=== PATIENT | female | born 1950 | race Two or more races ===

== ENCOUNTER 2016-12-20 09:48 | Day surgery (SDC) | payer OTHER ==
[~2016-12-20] VITALS: Ht 162.6 cm; Wt 57.1 kg
[2016-12-20 10:25] VITALS: Ht 162.6 cm; Wt 57.1 kg
[2016-12-20] MEDS ORDERED: ASPI81TA3 PO (10:36)
[2016-12-20] MEDS ORDERED: ATENOLOL (10:36)
[2016-12-20] MEDS ORDERED: LOSARTAN (10:36)
[2016-12-20] MEDS ORDERED: OMEPRAZOLE (10:36)
[2016-12-20] MEDS ORDERED: SIMVASTATIN (10:36)
[2016-12-20] MEDS ORDERED: CLONIDINE (10:36)
[2016-12-20 10:53] VITALS: BP 179/83; PULSE 77; RESP 16
[2016-12-20] MEDS ORDERED: LABETALOL HCL 20MG INJ ONE ×3 (11:11→11:12)
[2016-12-20] MEDS ORDERED: MIDAZOLAM 1 MG/ML 2 ML INJ ONE ×2 (11:19)
[2016-12-20] MEDS ORDERED: FENTAnyl 50 MCG/ML VIAL ONE (11:19)
[2016-12-20 11:45] VITALS: BP 140/60; PULSE 80; RESP 12
--- NOTE | 2017-01-13 14:07 | GILP ---
DATE OF PROCEDURE: 12/20/2016 NAME OF PROCEDURE: Colonoscopy. PREOPERATIVE DIAGNOSIS: Screening colonoscopy to rule out colon polyps. POSTOPERATIVE DIAGNOSES: Occasional diverticula noted in the descending colon, mostly in the sigmoid colon, no polyps, no carcinoma noted. DESCRIPTION OF PROCEDURE: After informed written consent was obtained, the patient was asked to lie on the left lateral side and 3 mg Versed and 50 mcg was 50 mcg of fentanyl was given as intravenous anesthesia. When the patient became somnolent, the Olympus video colonoscope was introduced into the rectum and scope was advanced all the way to the cecum. Entire colon appeared normal except occasional minimal diverticula in the sigmoid colon. No polyps, no tumor of any other kind noted. Scope at this time was withdrawn and at this time, procedure was terminated. PLAN: Recommend repeat colonoscopy in 10 years. Dictated By: WILMER CHAUHAN/SERG Conf#: [id number] DID#: [id number] CC: James Avery;*End*
== END 2016-12-20 12:19 | disposition home or self-care (01) ==
LOC: GIL 09:48
PROVIDERS: ATTEND Internal Medicine Gastroenterology
DX: Z12.11 Encounter for screening for malignant neoplasm of colon (principal); I10 Essential (primary) hypertension
CPT/HCPCS: 45378; J2250; J3010; Z7610